=== PATIENT | male | born 1960 | race Caucasian/White ===

== ENCOUNTER 2016-12-16 17:27 | Emergency (ER) | payer OTHER ==
[~2016-12-16] VITALS: Ht 172.7 cm; Wt 77.1 kg
[2016-12-16 19:36] VITALS: BP 150/74
== END 2016-12-16 19:25 | disposition home or self-care (01) ==
LOC: ED 17:27
DX: L02.416 Cutaneous abscess of left lower limb (principal); L03.116 Cellulitis of left lower limb; Z88.8 Allergy status to other drugs, medicaments and biological substances; Z98.890 Other specified postprocedural states
CPT/HCPCS: 90715; J1885; J3490

== ENCOUNTER 2019-03-28 07:46 | Emergency (ER) | payer OTHER ==
[~2019-03-28] VITALS: Ht 172.7 cm; Wt 76.7 kg
[2019-03-28 07:50] VITALS: Ht 172.7 cm; Wt 76.7 kg
[2019-03-28 08:33] VITALS: BP 189/96
== END 2019-03-28 08:34 | disposition home or self-care (01) ==
LOC: ED 07:46
DX: M79.602 Pain in left arm (principal); G89.29 Other chronic pain; F17.210 Nicotine dependence, cigarettes, uncomplicated; I10 Essential (primary) hypertension

== ENCOUNTER → 2020-10-08 | Outpatient (CLI) | payer OTHER | END | disposition home or self-care (01) | LOC: RD 11:12 | PROVIDERS: ATTEND Family Medicine | DX: M25.552 Pain in left hip (principal) ==